=== PATIENT | female | born 1955 | race Caucasian/White ===

== ENCOUNTER 2016-07-31 19:51 | Observation (INO) | payer OTHER ==
--- NOTE | 2016-07-31 20:35 | ERPHSYRPT ---
- History of Present Illness Time Seen by Provider: 07/31/16 20:30 Source: patient, family, EMS Exam Limitations: no limitations Patient Subjective Stated Complaint: per "she was dx with alzheimers. tonight she called the police on me wanting me to leave. that i didn't leave there and she didn't want me there. that it was her house and that i did not have any part of it. she was fighting with the police when they came. we have been for almost 41 years.". pt denies any complaints at this time. Triage Nursing Assessment: alert to person, place, skin pink warm, steady gait, breathign easy unlabored Physician History: pt has no trauma; but had altered mental status today and called police on her ; although she has regained orientation now she does not know what happened and is concerned for underlying medical problems as is ; no neuro deficits at this time; discussed risk/benefit of ct and they are most comfortable to hiold off at this time; no CP or sobreath; no abd pain or dizziness; no carotid bruits; no goiter; no outward signs of infection ; no cough or fever; Timing/Duration: today Severity: severe Character of Deficits: other (altered mental status- transitory) Deficits: no difficulties Baseline/Normal Cognition: alert oriented x 3 Current Cognition: alert oriented x 3 Associated Symptoms: confusion Allergies/Adverse Reactions: UNOBTAINABLE Allergy (Unverified 07/31/16 20:04) Hx Tetanus, Diphtheria Vaccination/Date Given: (unknown) Hx Influenza Vaccination/Date Given: Yes (2015) Hx Pneumococcal Vaccination/Date Given: No - Review of Systems Constitutional: No Fever, No Chills Eyes: No Symptoms Ears, Nose, & Throat: No Symptoms Respiratory: No Cough, No Dyspnea Cardiac: No Chest Pain, No Edema, No Syncope Abdominal/Gastrointestinal: No Abdominal Pain, No Nausea, No Vomiting, No Diarrhea Genitourinary Symptoms: No Dysuria Musculoskeletal: No Back Pain, No Neck Pain Skin: No Rash Neurological: Other (transient altered mental status), No Dizziness, No Focal Weakness, No Sensory Changes Psychological: No Symptoms Endocrine: No Symptoms Hematologic/Lymphatic: No Symptoms Immunological/Allergic: No Symptoms All Other Systems: Reviewed and Negative - Past Medical History Pertinent Past Medical History: No Neurological History: Alzheimer's Disease Endocrine Medical History: Diabetes Type II Psycho-Social History: Depression - Past Surgical History Past Surgical History: Yes Other Surgical History: gallbladder; 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 - Social History Smoking Status: Current every day smoker Drug Use: marijuana Patient Lives Alone: No - Nursing Vital Signs Nursing Vital Signs: Initial Vital Signs Temperature 97.9 F Temperature Source Oral Pulse Rate 85 Respiratory Rate 18 Blood Pressure [Right Arm] 109/45 Pain Intensity 0 - Lyons Coma Scale Best Eye Response (Destini): (4) open spontaneously Best Verbal Response (Lyons): (5) oriented Best Motor Response (Lyons): (6) obeys commands Destini Total: 15 - Physical Exam General Appearance: no apparent distress, alert Eye Exam: bilateral eye: PERRL, EOMI Ears, Nose, Throat Exam: normal ENT inspection, moist mucous membranes Neck Exam: normal inspection, non-tender, supple Respiratory: normal breath sounds, lungs clear, airway intact, No respiratory distress Cardiovascular: regular rate/rhythm, No edema Gastrointestinal: soft, No tenderness, No distention Pelvic Exam: deferred Rectal Exam: deferred Back Exam: normal inspection Extremity Exam: normal inspection, No pedal edema Mental Status: alert, 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: tongue midline Coordination/Gait: normal finger to nose, normal gait Skin Exam: normal color, warm, dry, No rash SpO2: 97 Oxygen Delivery: Room Air - Course Nursing assessment & vital signs reviewed: Yes EKG Interpreted by Me: Sinus Rhythm, NORMAL AXIS, NORMAL QRS, Non-specific ST Changes Ordered Tests: Active Orders 24 hr Category Date Time Status EKG-ER Only STAT Care 07/31/16 20:35 Active IV Insertion STAT Care 07/31/16 20:35 Active CBC W DIFF Stat Lab 07/31/16 20:35 Completed CMP Stat Lab 07/31/16 20:35 Completed Lactic Acid Urgent Lab 07/31/16 20:56 Completed SED RATE [Erythrocyte Sedimentation Rate] Stat Lab 07/31/16 20:38 Completed T4 Stat Lab 07/31/16 20:35 Completed TROPONIN Stat Lab 07/31/16 20:35 Completed TSH, 3RD Generation Stat Lab 07/31/16 20:35 Completed UA Stat Lab 07/31/16 22:49 Completed Medication Summary Generic Name Dose Route Start Last Admin Trade Name Freq PRN Reason Stop Dose Admin Sodium Chloride 1,000 mls @ 100 mls/hr 07/31/16 20:45 07/31/16 20:52 Sodium Chloride 0.9% 1000 Ml IV 08/30/16 20:44 100 mls/hr .Q10H GERHARD Administration Discontinued Medications Generic Name Dose Route Start Last Admin Trade Name Larissa PRN Reason Stop Dose Admin Sodium Chloride Confirm 07/31/16 20:51 Sodium Chloride 0.9% 1000 Ml Administered 07/31/16 20:52 Dose 1,000 mls @ ud .ROUTE .K-MED ONE Lab/Rad Data: Laboratory Result Diagrams 07/31/16 20:35 07/31/16 20:35 Laboratory Results 07/31/16 07/31/16 07/31/16 Range/Units 22:49 20:56 20:38 WBC (4.0-10.5) K/mm3 RBC (4.1-5.4) M/mm3 Hgb (12.0-16.0) gm/dl Hct (35-47) % MCV (78-100) fl MCH (26-32) pg MCHC (32-36) g/dl RDW (11.5-14.0) % Plt Count (150-450) K/mm3 MPV (6-9.5) fl Gran % (36.0-66.0) % Lymphocytes % (24.0-44.0) % Monocytes % (0.0-12.0) % Eosinophils % (0.00-5.0) % Basophils % (0.0-0.4) % Basophils # (0-0.4) ESR 6 (0-20) mm/hr Sodium (136-145) mEq/L Potassium (3.5-5.1) mEq/L Chloride (98-107) mEq/L Carbon Dioxide (21-32) mEq/L Anion Gap (5-15) MEQ/L BUN (9-20) mg/dL Creatinine (0.55-1.30) mg/dl Estimated GFR ML/MIN Glucose (70-110) MG/DL Lactic Acid 2.0 (0.4-2.0) Calcium (8.5-10.1) mg/dL Total Bilirubin (0.2-1.0) mg/dL AST (15-37) U/L ALT (12-78) U/L Alkaline Phosphatase (46-116) U/L Troponin I (0.000-0.056) ng/ml Serum Total Protein (6.4-8.2) gm/dL Albumin (3.4-5.0) g/dL Thyroxine (T4) (4.7-13.3) UG/DL TSH 3rd Generation (0.358-3.740) mIU/L Ur Collection Type CLEAN CATCH Urine Color COLORLESS (YELLOW) Urine Appearance CLEAR (CLEAR) Urine pH 5.5 (5-6) Ur Specific Morgan <=1.005 (1.005-1.025) Urine Protein NEGATIVE (Negative) Urine Glucose (UA) NEGATIVE (NEGATIVE) mg/dL Urine Ketones NEGATIVE (NEGATIVE) Urine Nitrite NEGATIVE (NEGATIVE) Urine Bilirubin NEGATIVE (NEGATIVE) Urine Urobilinogen 0.2 (0-1) mg/dL Urine WBC (Auto) NEGATIVE (NEGATIVE) Urine RBC (Auto) NEGATIVE (0-5) Stan/ul Specimen Received 07/31/16 22407/31/16 07/31/16 Range/Units 20:35 20:35 WBC 16.5 H (4.0-10.5) K/mm3 RBC 4.46 (4.1-5.4) M/mm3 Hgb 13.3 (12.0-16.0) gm/dl Hct 40.2 (35-47) % MCV 90.1 (78-100) fl MCH 29.8 (26-32) pg MCHC 33.1 (32-36) g/dl RDW 13.0 (11.5-14.0) % Plt Count 332 (150-450) K/mm3 MPV 9.9 H (6-9.5) fl Gran % 74.1 H (36.0-66.0) % Lymphocytes % 18.9 L (24.0-44.0) % Monocytes % 5.1 (0.0-12.0) % Eosinophils % 1.7 (0.00-5.0) % Basophils % 0.2 (0.0-0.4) % Basophils # 0.03 (0-0.4) ESR (0-20) mm/hr Sodium 141 (136-145) mEq/L Potassium 4.4 (3.5-5.1) mEq/L Chloride 104 (98-107) mEq/L Carbon Dioxide 26.3 (21-32) mEq/L Anion Gap 14.9 (5-15) MEQ/L BUN 11 (9-20) mg/dL Creatinine 0.85 (0.55-1.30) mg/dl Estimated GFR > 60 ML/MIN Glucose 132 H (70-110) MG/DL Lactic Acid (0.4-2.0) Calcium 9.5 (8.5-10.1) mg/dL Total Bilirubin 0.2 (0.2-1.0) mg/dL AST 20 (15-37) U/L ALT 16 (12-78) U/L Alkaline Phosphatase 88 (46-116) U/L Troponin I < 0.017 (0.000-0.056) ng/ml Serum Total Protein 6.6 (6.4-8.2) gm/dL Albumin 4.0 (3.4-5.0) g/dL Thyroxine (T4) 12.6 (4.7-13.3) UG/DL TSH 3rd Generation 0.017 L (0.358-3.740) mIU/L Ur Collection Type Urine Color (YELLOW) Urine Appearance (CLEAR) Urine pH (5-6) Ur Specific Morgan (1.005-1.025) Urine Protein (Negative) Urine Glucose (UA) (NEGATIVE) mg/dL Urine Ketones (NEGATIVE) Urine Nitrite (NEGATIVE) Urine Bilirubin (NEGATIVE) Urine Urobilinogen (0-1) mg/dL Urine WBC (Auto) (NEGATIVE) Urine RBC (Auto) (0-5) Stan/ul Specimen Received - Progress Progress: improved, re-examined Progress Note: 07/31/16 23:[address] Caceres and family and pt is not safe for DC home as was later incoherent in ER and they will work on placement depending on how she does in the night. Discussed with : Lamberto Will see patient in: hospital (observation) Counseled pt/family regarding: lab results, diagnosis, need for follow-up - Departure Time of Disposition: 23:29 Departure Disposition: Observation Clinical Impression: Altered mental status, unspecified Condition: Good Critical Care Time: No
[2016-07-31] MEDS ORDERED: Sodium Chloride 0.9% 1000 ML 1,000 ML IV SCH (20:45)
[2016-07-31] MEDS ORDERED: Sodium Chloride 0.9% 1000 ML 1,000 ML ONE (20:51)
[2016-07-31 21:02] LABS: BASOPHIL % 0.2 % (0.0-0.4); Eosinophil % 1.7 % (0.00-5.0); Granulocytes % 74.1 % (36.0-66.0); Lymphocytes % 18.9 % (24.0-44.0); Mean Cell Volume 90.1 fl (78-100); Mean Corpuscular Hemoglobin 29.8 pg (26-32); Mean Platelet Volume 9.9 fl (6-9.5); Monocytes % 5.1 % (0.0-12.0); Platelet Count 332 K/mm3 (150-450); Red Blood Count 4.46 M/mm3 (4.1-5.4); White Blood Count 16.5 K/mm3 (4.0-10.5)
[2016-07-31 21:27] LABS: ALKALINE PHOSPHATASE 88 U/L (46-116); ANION GAP 14.9 MEQ/L (5-15); BILIRUBIN,TOTAL 0.2 mg/dL (0.2-1.0); BLOOD UREA NITROGEN 11 mg/dL (9-20); CHLORIDE 104 mEq/L (98-107); Carbon Dioxide 26.3 mEq/L (21-32); Glucose 132 MG/DL (70-110); Potassium 4.4 mEq/L (3.5-5.1); SGOT/AST 20 U/L (15-37); SGPT/ALT 16 U/L (12-78); SODIUM 141 mEq/L (136-145); Total Protein 6.6 gm/dL (6.4-8.2)
[2016-07-31 21:29] LABS: TROPONIN < 0.017 ng/ml (0.000-0.056)
[2016-07-31 22:53] LABS: COMPLETE URINE MICROSCOPIC? NO; Collection Type CLEAN CATCH; Ph 5.5 (5-6)
[2016-08-01] MEDS ORDERED: TYLENOL 325 MG PO PRN
[2016-08-01] MEDS ORDERED: Zofran 4 MG/2 ML VIAL IV PRN
[2016-08-01] MEDS ORDERED: MORPHINE SULFATE 2 MG INJ IV PRN
[2016-08-01] MEDS ORDERED: NovoLOG Insulin SQ PRN
[2016-08-01] MEDS ORDERED: Ativan 1 MG PO PRN
[2016-08-01 05:43] LABS: BASOPHIL % 0.4 % (0.0-0.4); Eosinophil % 3.8 % (0.00-5.0); Granulocytes % 52.5 % (36.0-66.0); Lymphocytes % 37.3 % (24.0-44.0); Mean Corpuscular Hemoglobin 30.3 pg (26-32); Mean Platelet Volume 9.9 fl (6-9.5); Platelet Count 306 K/mm3 (150-450); Red Blood Count 4.22 M/mm3 (4.1-5.4); Red Cell Distribution Width 12.9 % (11.5-14.0); White Blood Count 10.3 K/mm3 (4.0-10.5)
[2016-08-01 05:53] LABS: ANION GAP 13.1 MEQ/L (5-15); BLOOD UREA NITROGEN 10 mg/dL (9-20); CHLORIDE 105 mEq/L (98-107); Carbon Dioxide 27.9 mEq/L (21-32); Glucose 129 MG/DL (70-110); Potassium 4.4 mEq/L (3.5-5.1); SODIUM 142 mEq/L (136-145)
[2016-08-01 11:18] VITALS: BP 172/75; PULSE 78; O2SAT 95
--- NOTE | 2016-08-02 08:49 | SSS ---
DISCHARGE DIAGNOSIS: DEMENTIA. HISTORY: The patient is a 61 year-old white female patient who had gotten into an argument with her spouse of 41 years. The patient is known to have issues with mild dementia in the past. I believe she has been seen by neurology in the past. She is not currently on any dementia medications. The patient does have a history of diabetes mellitus type 2 as well. Apparently after an argument at home the patient was brought to the hospital and it was felt that she needed to stay due to her disorientation to place and time. The patient was admitted and given IV fluids and monitored overnight. She continued to show no evidence of infection or other problems. She did have altered mental status when she arrived but this has cleared up. On discussion she recognized me although she could not name the hospital and she could not name the month, year or President. She could tell me that it was Monday however which was correct. PAST MEDICAL HISTORY: Otherwise significant for having cholecystectomy. She had a previous bone tumor removed. HOSPITAL COURSE: Her evaluation physically appeared to be normal for her. Laboratory studies were also likewise were essentially all negative. The patient's thyroid studies were also done and were normal was well. The patient was felt to be ready for discharge back home again to the care of her spouse if he is willing to accept her in the home. We will try to arrange for her to go back and see her neurologist. If that is not possible we will get a tele-neurology consult prior to her discharge home.
== END 2016-08-01 11:08 | disposition home or self-care (01) ==
LOC: ED 19:51 → MED SURG 23:53
PROVIDERS: ADMIT Family Medicine; ATTEND Family Medicine
DX: G30.9 Alzheimer's disease, unspecified (principal); F02.80 Dementia in other diseases classified elsewhere, unspecified severity, without behavioral disturbance, psychotic disturbance, mood disturbance, and anxiety; E11.9 Type 2 diabetes mellitus without complications; Z79.4 Long term (current) use of insulin; Z79.899 Other long term (current) drug therapy
CPT/HCPCS: 36000; 36415; 80048; 80053; 81002; 82962; 83605; 84436; 84443; 84484; 85025; 85652; 93005; 93268; 94760; 96360; 96361; 99284; 99285; G0378

== ENCOUNTER 2017-03-31 14:11 | Emergency (ER) | payer OTHER ==
[2017-03-31 14:53] LABS: BASOPHIL % 0.5 % (0.0-0.4); Eosinophil % 2.4 % (0.00-5.0); Granulocytes % 70.4 % (36.0-66.0); Lymphocytes % 21.1 % (24.0-44.0); Mean Cell Volume 89.1 fl (78-100); Mean Platelet Volume 8.9 fl (6-9.5); Monocytes % 5.6 % (0.0-12.0); Platelet Count 392 K/mm3 (150-450); Red Blood Count 3.94 M/mm3 (4.1-5.4); Red Cell Distribution Width 13.2 % (11.5-14.0); White Blood Count 10.2 K/mm3 (4.0-10.5)
[2017-03-31 14:54] LABS: Mean Corpuscular Hemoglobin 29.1 pg (26-32)
--- NOTE | 2017-03-31 15:13 | ERPHSYRPT ---
- History of Present Illness Time Seen by Provider: 03/31/17 14:18 Source: patient, family ( who is caregiver) Patient Subjective Stated Complaint: states patient has been more confused than normal for one week. hx alzheimers Triage Nursing Assessment: patient ambulated to room per self. patient oriented only to name and . speech clear, cooperative. Physician History: CC: confusion Hx; 62 y/o patient of Dr Abad. She has hx of dementia for a fair amount of time. cares for her at home. She has been more agitated, not lucid during the past week. No injury. She was upset and told she was going to hurt him with scissors. He got them away from her when she went to the . She has been thinking her parents alive even though they are . She thinks her son is her brother and her is not her . Dr Abad called out haldol this AM and she was given one pill this AM. Pt denies headache, fever , pain. She feels sad and does not want any more. Allergies/Adverse Reactions: No Known Drug Allergies Allergy (Unverified 03/31/17 14:28) Hx Tetanus, Diphtheria Vaccination/Date Given: Yes (2016) Hx Influenza Vaccination/Date Given: Yes (2015) Hx Pneumococcal Vaccination/Date Given: Yes - Review of Systems Constitutional: No Fever, No Chills, No Malaise Eyes: No Symptoms Respiratory: No Dyspnea Cardiac: No Chest Pain Abdominal/Gastrointestinal: No Abdominal Pain, No Nausea, No Vomiting, No Diarrhea Musculoskeletal: No Back Pain, No Neck Pain Skin: No Rash Neurological: No Focal Weakness, No Headache All Other Systems: Reviewed and Negative - Past Medical History Pertinent Past Medical History: Yes Neurological History: Alzheimer's Disease Endocrine Medical History: Diabetes Type II Psycho-Social History: Depression - Past Surgical History Past Surgical History: Yes Gastrointestinal: Cholecystectomy Other Surgical History: gallbladder; 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 - Social History Smoking Status: Current every day smoker How long have you smoked: years Exposure to second hand smoke: No Drug Use: none Patient Lives Alone: No (lives at home with ) - Nursing Vital Signs Nursing Vital Signs: Initial Vital Signs Temperature 98.5 F 03/31/17 14:17 Pulse Rate 73 03/31/17 14:17 Respiratory Rate 16 10/20/17 14:17 Blood Pressure 177/65 10/20/17 14:17 O2 Sat by Pulse Oximetry 100 03/31/17 14:17 Pain Scale Pain Intensity 0 - Physical Exam General Appearance: alert Eye Exam: PERRL/EOMI Ears, Nose, Throat Exam: normal ENT inspection, moist mucous membranes Neck Exam: normal inspection, supple Respiratory Exam: normal breath sounds Cardiovascular Exam: regular rate/rhythm Gastrointestinal/Abdomen Exam: soft, No tenderness, No distention Back Exam: normal inspection Extremity Exam: normal inspection, normal range of motion Neurologic Exam: alert, cooperative, disoriented, depressed mood/affect, other ( MMSE 4/30- severe impairment) Skin Exam: warm, dry, No rash SpO2 Interpretation: normal SpO2: 100 Oxygen Delivery: Room Air - Course Nursing assessment & vital signs reviewed: Yes - CT Exams head CT Interpretation: Negative, Tele-radiologist Report Ordered Tests: Active Orders 24 hr Category Date Time Status Clean Catch Urine Specimen STAT Care 03/31/17 14:29 Active IV Insertion STAT Care 03/31/17 14:29 Active Regular Diet Diet 03/31/17 Dinner Active HEAD WITHOUT CONTRAST [CT] Stat Exams 03/31/17 15:15 Completed ACETAMINOPHEN Stat Lab 03/31/17 15:04 Completed CBC W DIFF Stat Lab 03/31/17 14:45 Completed CMP Stat Lab 03/31/17 14:45 Completed ETHYL ALCOHOL Stat Lab 03/31/17 15:04 Completed RPR Stat Lab 03/31/17 15:15 Ordered TSH [TSH, 3RD Generation] Stat Lab 03/31/17 15:04 Completed UA W/RFX UR CULTURE Stat Lab 03/31/17 14:45 Completed Urine Triage Profile Stat Lab 03/31/17 15:14 Completed Lab/Rad Data: Laboratory Result Diagrams 03/31/17 14:45 03/31/17 14:45 Laboratory Results 03/31/17 03/31/17 03/31/17 Range/Units 15:14 15:04 14:45 WBC (4.0-10.5) K/mm3 RBC (4.1-5.4) M/mm3 Hgb (12.0-16.0) gm/dl Hct (35-47) % MCV (78-100) fl MCH (26-32) pg MCHC (32-36) g/dl RDW (11.5-14.0) % Plt Count (150-450) K/mm3 MPV (6-9.5) fl Gran % (36.0-66.0) % Lymphocytes % (24.0-44.0) % Monocytes % (0.0-12.0) % Eosinophils % (0.00-5.0) % Basophils % (0.0-0.4) % Basophils # (0-0.4) Sodium (136-145) mEq/L Potassium (3.5-5.1) mEq/L Chloride (98-107) mEq/L Carbon Dioxide (21-32) mEq/L Anion Gap (5-15) MEQ/L BUN (9-20) mg/dL Creatinine (0.55-1.30) mg/dl Estimated GFR ML/MIN Glucose (70-110) MG/DL Calcium (8.5-10.1) mg/dL Total Bilirubin (0.2-1.0) mg/dL AST (15-37) U/L ALT (12-78) U/L Alkaline Phosphatase (46-116) U/L Serum Total Protein (6.4-8.2) gm/dL Albumin (3.4-5.0) g/dL TSH 3rd Generation 0.668 (0.358-3.740) mIU/L Ur Collection Type CCMS Urine Color YELLOW (YELLOW) Urine Appearance SLIGHTLY CLOUDY (CLEAR) Urine pH 5.0 (5-6) Ur Specific Merrill 1.005 (1.005-1.025) Urine Protein NEGATIVE (Negative) Urine Ketones NEGATIVE (NEGATIVE) Urine Blood NEGATIVE (0-5) Stan/ul Urine Nitrite NEGATIVE (NEGATIVE) Urine Bilirubin NEGATIVE (NEGATIVE) Urine Urobilinogen NORMAL (0-1) mg/dL Ur Leukocyte Esterase NEGATIVE (NEGATIVE) Urine Culture Reflexed NO (NO) Urine Glucose NEGATIVE (NEGATIVE) mg/dL Urine Opiates Level NEG. (NEGATIVE) Ur Methadone NEG. (NEGATIVE) Acetaminophen < 2.0 L (10-30) ug/ml Urine Barbiturates NEG. (NEGATIVE) Ur Phencyclidine (PCP) NEG. (NEGATIVE) Urine Amphetamine NEG. (NEGATIVE) U Benzodiazepine Level NEG. (NEGATIVE) Urine Cocaine NEG. (NEGATIVE) Urine Marijuana (THC) NEG. (NEGATIVE) Ethyl Alcohol 0.02 H (0.00-0.01) % Specimen Received 1510 03/31/17 03/31/17 03/31/17 Range/Units 14:45 14:45 WBC 10.2 (4.0-10.5) K/mm3 RBC 3.94 L (4.1-5.4) M/mm3 Hgb 11.5 L (12.0-16.0) gm/dl Hct 35.1 (35-47) % MCV 89.1 (78-100) fl MCH 29.1 (26-32) pg MCHC 32.8 (32-36) g/dl RDW 13.2 (11.5-14.0) % Plt Count 392 (150-450) K/mm3 MPV 8.9 (6-9.5) fl Gran % 70.4 H (36.0-66.0) % Lymphocytes % 21.1 L (24.0-44.0) % Monocytes % 5.6 (0.0-12.0) % Eosinophils % 2.4 (0.00-5.0) % Basophils % 0.5 (0.0-0.4) % Basophils # 0.05 (0-0.4) Sodium 137 (136-145) mEq/L Potassium 4.3 (3.5-5.1) mEq/L Chloride 99 (98-107) mEq/L Carbon Dioxide 28.7 (21-32) mEq/L Anion Gap 13.3 (5-15) MEQ/L BUN 18 (9-20) mg/dL Creatinine 0.91 (0.55-1.30) mg/dl Estimated GFR > 60 ML/MIN Glucose 112 H (70-110) MG/DL Calcium 9.3 (8.5-10.1) mg/dL Total Bilirubin 0.40 (0.2-1.0) mg/dL AST 23 (15-37) U/L ALT 31 (12-78) U/L Alkaline Phosphatase 79 (46-116) U/L Serum Total Protein 7.6 (6.4-8.2) gm/dL Albumin 4.0 (3.4-5.0) g/dL TSH 3rd Generation (0.358-3.740) mIU/L Ur Collection Type Urine Color (YELLOW) Urine Appearance (CLEAR) Urine pH (5-6) Ur Specific Merrill (1.005-1.025) Urine Protein (Negative) Urine Ketones (NEGATIVE) Urine Blood (0-5) Stan/ul Urine Nitrite (NEGATIVE) Urine Bilirubin (NEGATIVE) Urine Urobilinogen (0-1) mg/dL Ur Leukocyte Esterase (NEGATIVE) Urine Culture Reflexed (NO) Urine Glucose (NEGATIVE) mg/dL Urine Opiates Level (NEGATIVE) Ur Methadone (NEGATIVE) Acetaminophen (10-30) ug/ml Urine Barbiturates (NEGATIVE) Ur Phencyclidine (PCP) (NEGATIVE) Urine Amphetamine (NEGATIVE) U Benzodiazepine Level (NEGATIVE) Urine Cocaine (NEGATIVE) Urine Marijuana (THC) (NEGATIVE) Ethyl Alcohol (0.00-0.01) % Specimen Received - Progress Progress Note: 03/31/17 15:13 She seems some depressed. She has severe dementia. She has decline. is at wits end. She likely needs geriatric psychiatry admission. He prefers [facility] if available. 03/31/17 16:59 Records sent to [facility] for review. She ate meal tray. 03/31/17 17:47 Pt accepted in transfer to [facility] per Dr Vyas. Counseled pt/family regarding: diagnosis, need for follow-up - Departure Time of Disposition: 17:47 Departure Disposition: Transfer ([facility]) Clinical Impression: Alzheimer's dementia with behavioral disturbance, geriatric depression Condition: Stable Critical Care Time: No Referrals: MAEVE ABAD [Primary Care Provider] -
[2017-03-31 15:20] LABS: Bilirubin NEGATIVE (NEGATIVE); Blood NEGATIVE Ery/ul (0-5); COMPLETE URINE MICROSCOPIC? NO; Collection Type CCMS; Glucose NEGATIVE (NEGATIVE); Leukocyte Esterase NEGATIVE (NEGATIVE)
[2017-03-31 15:22] LABS: ACETAMINOPHEN < 2.0 ug/ml (10-30)
[2017-03-31 15:22] LABS: ADD URINE CULTURE? NO (NO)
[2017-03-31 15:26] LABS: ETHYL ALCOHOL 0.02 % (0.00-0.01)
[2017-03-31 15:27] LABS: ALKALINE PHOSPHATASE 79 U/L (46-116); ANION GAP 13.3 MEQ/L (5-15); BLOOD UREA NITROGEN 18 mg/dL (9-20); CHLORIDE 99 mEq/L (98-107); Carbon Dioxide 28.7 mEq/L (21-32); Glucose 112 MG/DL (70-110); Potassium 4.3 mEq/L (3.5-5.1); SGOT/AST 23 U/L (15-37); SGPT/ALT 31 U/L (12-78); SODIUM 137 mEq/L (136-145); Total Protein 7.6 gm/dL (6.4-8.2)
--- NOTE | 2017-03-31 15:39 | XRAY ---
Indication: Confusion. Multiple contiguous axial images obtained through the head without contrast. Comparison: None Age-appropriate global atrophy and minimal periventricular degenerative micro-ischemia bilaterally. No acute intracranial hemorrhage, abnormal extra-axial fluid collection, or mass effect. Fourth ventricle is midline without hydrocephalus. Bony calvarium intact. Visualized paranasal sinuses and mastoid air cells are clear. Impression: Nonacute senile brain. CT DI 70.62
[2017-03-31] MEDS ORDERED: HALDOL 1 MG PO ONE (18:08)
[2017-03-31] MEDS ORDERED: Ativan 1 MG PO ONE (18:13)
[2017-03-31 18:29] VITALS: BP 159/72; PULSE 68; O2SAT 98
== END 2017-03-31 19:25 | disposition short-term general hospital (02) ==
LOC: ED 14:11
DX: G30.9 Alzheimer's disease, unspecified (principal); F02.81 Dementia in other diseases classified elsewhere, unspecified severity, with behavioral disturbance; R41.0 Disorientation, unspecified; E11.9 Type 2 diabetes mellitus without complications
CPT/HCPCS: 36000; 36415; 70450; 80053; 80307; 81002; 84443; 85025; 86592; 99285; G0481; A9270-GY

== ENCOUNTER 2017-09-14 15:07 | Observation (INO) | payer MEDICAID, MEDICARE, OTHER ==
[2017-09-14] MEDS ORDERED: Sodium Chloride 0.9% 1000 ML 1,000 ML IV SCH ×2 (15:15→19:59)
[2017-09-14 15:20] LABS: A-aADO2 -106; ABG HEMOGLOBIN 12.9; ABG POTASSIUM 3.6 (3.5-5.1); ABG SITE RIGHT BRACHIAL; ARTERIAL BLD GAS O2 SATURATION 99.7 % (95-100); ARTERIAL BLOOD GAS BASE EXCESS 6.9 (-2.0-2.0); ARTERIAL BLOOD GAS FIO2 44 %; ARTERIAL BLOOD GAS PCO2 38 mmHg (35-45); ARTERIAL BLOOD GAS PO2 372 mmHg (75-100); ARTERIAL BLOOD GAS pH 7.51 (7.35-7.45); CARBOXYHEMOGLOBIN 1.2 % THgb (0.0-6.9); HCO3- 30.3 (22-28); HGB O2 SAT 97.5 g/dF (94-100); Lactic Acid 2.3 (0.4-2.0)
[2017-09-14 15:54] LABS: BASOPHIL % 0.2 % (0.0-0.4); Basophil (Absolute #) 0.02 (0-0.4); Eosinophil % 0.4 % (0.00-5.0); Eosinophil (Absolute #) 0.04 (0-0.5); Granulocyte Absolute (ANC) 7.76 (1.4-6.9); Granulocytes % 67.9 % (36.0-66.0); Hemoglobin 13.1 gm/dl (12.0-16.0); Lymphocyte (Absolute #) 2.91 (1.0-4.6); Lymphocytes % 25.5 % (24.0-44.0); Mean Cell Volume 90.9 fl (78-100); Mean Corpuscular Hemoglobin 29.8 pg (26-32); Mean Corpuscular Hgb Concent. 32.8 g/dl (32-36); Mean Platelet Volume 10.2 fl (6-9.5); Monocyte (Absolute #) 0.68 (0.0-1.3); Platelet Count 247 K/mm3 (150-450); Red Cell Distribution Width 16.4 % (11.5-14.0); White Blood Count 11.4 K/mm3 (4.0-10.5)
[2017-09-14 16:17] LABS: INR 1.24 (0.8-3.0)
[2017-09-14 16:19] LABS: PTT 30.4 SECONDS (25.3-37.0)
[2017-09-14 16:21] LABS: ALBUMIN 3.6 g/dL (3.5-5.0); ALKALINE PHOSPHATASE 62 U/L (38-126); ANION GAP 13.5 MEQ/L (5-15); BLOOD UREA NITROGEN 38 mg/dL (7-17); CHLORIDE 108 mmol/L (98-107); Carbon Dioxide 30 mmol/L (22-30); Creatinine 1 1.02 mg/dL (0.52-1.04); Glucose 146 mg/dL (74-106); Potassium 3.6 mmol/L (3.5-5.1); SGOT/AST 36 U/L (14-36); SGPT/ALT 33 U/L (0-35); SODIUM 148 mmol/L (137-145); Total Protein 6.3 g/dL (6.3-8.2)
--- NOTE | 2017-09-14 16:36 | XRAY ---
Indication: Acute mental status change. Facial bruising. Multiple contiguous axial images obtained through the cervical spine. Sagittal and coronal reformatted images obtained. Comparison: None Axial images negative for acute fracture, suspicious bony lesions, or spinal canal stenosis. Mild C4-C6 degenerative endplate spurring. Mild/moderate multilevel bilateral degenerative facet hypertrophy. Sagittal and coronal reformatted images demonstrates straightening of the cervical lordosis, positional versus paraspinal spasm. Minimal 2 mm C4 anterolisthesis on C5. C6-C7 degenerative disc space narrowing. No acute compression fracture or jumped facet. Normal-appearing craniocervical junction. Visualized noncontrasted soft tissues demonstrates minimal bilateral carotid calcifications and dense bilateral thyroid calcifications. Lung apices clear. CT head and CT facial bones reported separately. Impression: 1. Cervical lordotic screening, positional versus paraspinal spasm. 2. Multilevel degenerative changes including minimal grade 1 C4 anterolisthesis. CTDI 39.08
--- NOTE | 2017-09-14 16:36 | XRAY ---
Indication: Acute mental status change. Facial bruising. Multiple contiguous axial images obtained through the head without contrast. Comparison: March 31, 2017. Several images are degraded by motion artifact. Grossly stable age appropriate global atrophy and mild periventricular degenerative micro-ischemia bilaterally. No acute intracranial hemorrhage, abnormal extra-axial fluid collection, or mass effect. Fourth ventricle is midline without hydrocephalus. Bony calvarium intact. Visualized paranasal sinuses and mastoid air cells are clear. Impression: Limited exam due to motion artifact. Grossly stable nonacute senile brain. CTDI 61.38
--- NOTE | 2017-09-14 16:38 | XRAY ---
Indication: Acute mental status change. Facial bruising. Multiple contiguous axial images obtained through the facial bones. Sagittal and coronal reformatted images obtained. Comparison: None Inferior images are slightly degraded by motion artifact. No acute fracture, suspicious bony lesions, or radiopaque foreign body. Orbits including roof, jennings, and floor intact. Paranasal sinuses and nasal passages are clear. Minimal nasal septal deviation. Visualized noncontrasted soft tissues unremarkable. CT head and CT cervical spine reported separately. Impression: 1. Minimal motion artifact. 2. Remaining CT facial bones exam negative. CTDI 59.47
[2017-09-14 16:41] LABS: TROPONIN < 0.012 ng/mL (0.000-0.034)
[2017-09-14] MEDS ORDERED: Sodium Chloride 0.9% 1000 ML 1,000 ML ONE (17:02)
--- NOTE | 2017-09-14 17:58 | ERPHSYRPT ---
- History of Present Illness Time Seen by Provider: 09/14/17 15:12 Source: family (), EMS Patient Subjective Stated Complaint: respiratory distress Triage Nursing Assessment: pt to er per ems, respiratory distress during routine S tranfer from [facility] to [facility] Physician History: CC: altered breathing hx: 62 y/o patient of Dr Alston from [facility]. She has been inpatient at [facility] geriatric unit for several weeks. She has hx of alzheimers disease. She has agitation. Paces a lot. Was to return to [place] today. [facility] picked her up at [facility]. She ativan earlier in day. EMT states patient did not want to get onto the EMS cot, was given IM shot zyprexa and then calmed and was loaded on to ambulance. While en route she was sleeping and then the patient had decreased breathing, low pulse ox, and tachycardia. The EMT diverted to [facility] ER. EMT states no fall or injury but had some bruises. ILL: Alzheimer dementia, depression, Type 2 diabetes, HTN, hyperlipidemia, hypothyroidism, GERD with esophagitis ALL: None Timing/Duration: today Severity: severe Allergies/Adverse Reactions: No Known Drug Allergies Allergy (Verified 09/14/17 15:15) Home Medications: Alprazolam [Xanax 0.5 mg] 0.5 mg PO TID 03/31/17 [History] Aripiprazole [Abilify] 2 mg PO DAILY 03/31/17 [History] Donepezil HCl 10 mg [Aricept 10 MG] 10 mg PO HS 03/31/17 [History] Fluoxetine HCl 40 mg PO DAILY 03/31/17 [History] Haloperidol 1 mg [Haldol 1 mg] 2 mg PO BID 03/31/17 [History] Hydrocodone/Acetaminophen [Hydrocodon-Acetaminophn 10-325] 1 each PO Q6HPRN PRN 03/31/17 [History] Levothyroxine Sodium [Synthroid] 125 mcg PO DAILY 03/31/17 [History] Metformin HCl [Glucophage] 1,000 mg PO BID 03/31/17 [History] Omeprazole 40 mg PO DAILY 03/31/17 [History] Quetiapine Fumarate 25 mg [Seroquel 25 MG] 25 mg PO HS 03/31/17 [History] Simvastatin 20Mg [Zocor 20Mg] 20 mg PO QPM 03/31/17 [History] Hx Tetanus, Diphtheria Vaccination/Date Given: No (unkown) Hx Influenza Vaccination/Date Given: No (unkown) Hx Pneumococcal Vaccination/Date Given: No (unkown) Immunizations Up to Date: No (unkown) - Review of Systems Constitutional: No Fever, No Chills Respiratory: Cyanosis (O2 applied per EMS), Dyspnea Abdominal/Gastrointestinal: No Vomiting Musculoskeletal: No Injury All Other Systems: Unable due to condition, Unable due to dementia - Past Medical History Pertinent Past Medical History: Yes Neurological History: Alzheimer's Disease Endocrine Medical History: Diabetes Type II Psycho-Social History: Depression - Past Surgical History Past Surgical History: Yes Gastrointestinal: Cholecystectomy Other Surgical History: gallbladder; 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 - Social History Smoking Status: Unknown if ever smoked How long have you smoked: years Exposure to second hand smoke: No Drug Use: none Patient Lives Alone: No (lives at home with ) - Nursing Vital Signs Nursing Vital Signs: Initial Vital Signs Pulse Rate 74 09/14/17 15:18 Respiratory Rate 24 09/14/17 15:18 Blood Pressure 132/90 09/14/17 15:18 O2 Sat by Pulse Oximetry 79 L 09/14/17 15:18 Pain Scale Pain Intensity 0 - Physical Exam General Appearance: other (alert, agitated, combative) Eye Exam: other (perrl) Ears, Nose, Throat Exam: moist mucous membranes Neck Exam: normal inspection Respiratory Exam: lungs clear, diminished breath sounds Cardiovascular Exam: regular rate/rhythm, bradycardia Gastrointestinal/Abdomen Exam: soft, No tenderness, No distention Neurologic Exam: alert (moves all extremitieis) Skin Exam: warm, dry, ecchymosis (scattered bruises including elbows and right eyeborw with some hematoma, left upper arm, left shoulder blade, right shoulder blade. Abrasions right elbow and left elbow.) SpO2 Interpretation: hypoxic, O2 applied SpO2: 89 Oxygen Delivery: Non-rebreather - Course EKG Interpreted by Me: RATE (47), Sinus Barber, NORMAL AXIS, NORMAL ST-T (QTc 368 ) Ordered Tests: Active Orders 24 hr Category Date Time Status Mule Packer STAT Care 09/14/17 15:13 Active Cath for Specimen-Straight STAT Care 09/14/17 15:13 Active EKG-ER Only STAT Care 09/14/17 15:12 Active IV Insertion STAT Care 09/14/17 15:12 Active Oxygen-ED Only NON-REBREATHER 100% Care 09/14/17 15:12 Active Pulse Oximetry (ED) STAT Care 09/14/17 15:12 Active Rectal Temperature STAT Care 09/14/17 15:12 Active CERVICAL SPINE WO CONTRAST [CT] Stat Exams 09/14/17 15:25 Completed CHEST 1 VIEW (PORTABLE) Stat Exams 09/14/17 15:13 Taken FACIAL BONES WO CONTRAST [CT] Stat Exams 09/14/17 15:25 Completed HEAD WITHOUT CONTRAST [CT] Stat Exams 09/14/17 15:18 Completed ARTERIAL BLOOD GASES Stat Lab 09/14/17 15:12 Completed CBC W DIFF Stat Lab 09/14/17 15:50 Completed CK-Creatinine Phosphokinase Stat Lab 09/14/17 17:46 Completed CMP Routine Lab 09/14/17 15:50 Completed Glucose,Critical Care Urgent Lab 09/14/17 15:17 Completed Lactic Acid Stat Lab 09/14/17 15:12 Completed Lactic Acid Stat Lab 09/14/17 15:33 Ordered MAGNESIUM Routine Lab 09/14/17 15:50 Completed PROTIME WITH INR Stat Lab 09/14/17 15:50 Completed PTT Stat Lab 09/14/17 15:50 Completed TROPONIN Q3H Lab 09/14/17 15:50 Completed TROPONIN Q3H Lab 09/14/17 18:15 Ordered TROPONIN Q3H Lab 09/14/17 21:15 Ordered TROPONIN Q3H Lab 09/15/17 00:15 Ordered TROPONIN Q3H Lab 09/15/17 03:15 Ordered UA W/ MICROSCOPIC Stat Lab 09/14/17 17:50 Completed Medication Summary Generic Name Dose Route Start Last Admin Trade Name Freq PRN Reason Stop Dose Admin Sodium Chloride 1,000 mls @ 50 mls/hr 09/14/17 15:15 09/14/17 17:02 Sodium Chloride 0.9% 1000 Ml IV 10/14/17 15:14 50 mls/hr .Q20H GERHARD Administration Lab/Rad Data: Laboratory Result Diagrams 09/14/17 15:50 09/14/17 15:50 Laboratory Results 09/14/17 09/14/1718 Range/Units 17:50 17:46 15:50 WBC (4.0-10.5) K/mm3 RBC (4.1-5.4) M/mm3 Hgb (12.0-16.0) gm/dl Hct (35-47) % MCV (78-100) fl MCH (26-32) pg MCHC (32-36) g/dl RDW (11.5-14.0) % Plt Count (150-450) K/mm3 MPV (6-9.5) fl Gran % (36.0-66.0) % Eos # (Auto) (0-0.5) Absolute Lymphs (auto) (1.0-4.6) Absolute Monos (auto) (0.0-1.3) Lymphocytes % (24.0-44.0) % Monocytes % (0.0-12.0) % Eosinophils % (0.00-5.0) % Basophils % (0.0-0.4) % Absolute Granulocytes (1.4-6.9) Basophils # (0-0.4) PT (9.95-12.35) SECONDS INR (0.8-3.0) APTT (25.3-37.0) SECONDS Puncture Site pCO2 (35-45) mmHg pO2 (75-100) mmHg Base Excess (-2.0-2.0) O2 Saturation (94-100) g/dF ABG pH (7.35-7.45) ABG HCO3 (22-28) ABG O2 Sat (Measured) (95-100) % Sandro Test A-a Gradient a/A Ratio Hemoglobin Carboxyhemoglobin (0.0-6.9) % THgb Methemoglobin (1.4-1.5) % Potassium 3.6 (3.5-5.1) Glucose 146 H (70-110) Temperature C POC O2 Flow Rate % Sodium 148 H (137-145) mmol/L Chloride 108 H (98-107) mmol/L Carbon Dioxide 30 (22-30) mmol/L Anion Gap 13.5 (5-15) MEQ/L BUN 38 H (7-17) mg/dL Creatinine 1.02 (0.52-1.04) mg/dL Estimated GFR 58.0 ML/MIN Lactic Acid (0.4-2.0) Calcium 9.0 (8.4-10.2) mg/dL Magnesium 1.8 (1.6-2.3) mg/dL Total Bilirubin 0.50 (0.2-1.3) mg/dL AST 36 (14-36) U/L ALT 33 (0-35) U/L Alkaline Phosphatase 62 (38-126) U/L Creatine Kinase 146 H (30-135) U/L Troponin I < 0.012 (0.000-0.034) ng/mL Serum Total Protein 6.3 (6.3-8.2) g/dL Albumin 3.6 (3.5-5.0) g/dL Ur Collection Type CATH Urine Color YELLOW (YELLOW) Urine Appearance CLEAR (CLEAR) Urine pH 6.5 (5-6) Ur Specific Benton 1.015 (1.005-1.025) Urine Protein NEGATIVE (Negative) Urine Ketones NEGATIVE (NEGATIVE) Urine Blood NEGATIVE (0-5) Stan/ul Urine Nitrite NEGATIVE (NEGATIVE) Urine Bilirubin NEGATIVE (NEGATIVE) Urine Urobilinogen 1 (0-1) mg/dL Ur Leukocyte Esterase 1+ (NEGATIVE) Urine Microscopic WBC 0-2 (0-5) /HPF Ur Epithelial Cells RARE (FEW) /HPF Urine Bacteria RARE (NEGATIVE) /HPF Urine Culture Reflexed NO (NO) Urine Glucose 250 (NEGATIVE) mg/dL Valproic Acid (50-100) ug/mL Specimen Received 09/14/17 1750 09/14/17 09/14/17 09/14/17 Range/Units 15:50 15:50 15:50 WBC 11.4 H (4.0-10.5) K/mm3 RBC 4.40 (4.1-5.4) M/mm3 Hgb 13.1 (12.0-16.0) gm/dl Hct 40.0 (35-47) % MCV 90.9 (78-100) fl MCH 29.8 (26-32) pg MCHC 32.8 (32-36) g/dl RDW 16.4 H (11.5-14.0) % Plt Count 247 (150-450) K/mm3 MPV 10.2 H (6-9.5) fl Gran % 67.9 H (36.0-66.0) % Eos # (Auto) 0.04 (0-0.5) Absolute Lymphs (auto) 2.91 (1.0-4.6) Absolute Monos (auto) 0.68 (0.0-1.3) Lymphocytes % 25.5 (24.0-44.0) % Monocytes % 6.0 (0.0-12.0) % Eosinophils % 0.4 (0.00-5.0) % Basophils % 0.2 (0.0-0.4) % Absolute Granulocytes 7.76 H (1.4-6.9) Basophils # 0.02 (0-0.4) PT 13.8 H (9.95-12.35) SECONDS INR 1.24 (0.8-3.0) APTT 30.4 (25.3-37.0) SECONDS Puncture Site pCO2 (35-45) mmHg pO2 (75-100) mmHg Base Excess (-2.0-2.0) O2 Saturation (94-100) g/dF ABG pH (7.35-7.45) ABG HCO3 (22-28) ABG O2 Sat (Measured) (95-100) % Sandro Test A-a Gradient a/A Ratio Hemoglobin Carboxyhemoglobin (0.0-6.9) % THgb Methemoglobin (1.4-1.5) % Potassium (3.5-5.1) Glucose (70-110) Temperature C POC O2 Flow Rate % Sodium (137-145) mmol/L Chloride (98-107) mmol/L Carbon Dioxide (22-30) mmol/L Anion Gap (5-15) MEQ/L BUN (7-17) mg/dL Creatinine (0.52-1.04) mg/dL Estimated GFR ML/MIN Lactic Acid (0.4-2.0) Calcium (8.4-10.2) mg/dL Magnesium (1.6-2.3) mg/dL Total Bilirubin (0.2-1.3) mg/dL AST (14-36) U/L ALT (0-35) U/L Alkaline Phosphatase (38-126) U/L Creatine Kinase (30-135) U/L Troponin I (0.000-0.034) ng/mL Serum Total Protein (6.3-8.2) g/dL Albumin (3.5-5.0) g/dL Ur Collection Type Urine Color (YELLOW) Urine Appearance (CLEAR) Urine pH (5-6) Ur Specific Benton (1.005-1.025) Urine Protein (Negative) Urine Ketones (NEGATIVE) Urine Blood (0-5) Stan/ul Urine Nitrite (NEGATIVE) Urine Bilirubin (NEGATIVE) Urine Urobilinogen (0-1) mg/dL Ur Leukocyte Esterase (NEGATIVE) Urine Microscopic WBC (0-5) /HPF Ur Epithelial Cells (FEW) /HPF Urine Bacteria (NEGATIVE) /HPF Urine Culture Reflexed (NO) Urine Glucose (NEGATIVE) mg/dL Valproic Acid 45.0 L (50-100) ug/mL Specimen Received 09/14/17 09/14/17 Range/Units 15:17 15:12 WBC (4.0-10.5) K/mm3 RBC (4.1-5.4) M/mm3 Hgb (12.0-16.0) gm/dl Hct (35-47) % MCV (78-100) fl MCH (26-32) pg MCHC (32-36) g/dl RDW (11.5-14.0) % Plt Count (150-450) K/mm3 MPV (6-9.5) fl Gran % (36.0-66.0) % Eos # (Auto) (0-0.5) Absolute Lymphs (auto) (1.0-4.6) Absolute Monos (auto) (0.0-1.3) Lymphocytes % (24.0-44.0) % Monocytes % (0.0-12.0) % Eosinophils % (0.00-5.0) % Basophils % (0.0-0.4) % Absolute Granulocytes (1.4-6.9) Basophils # (0-0.4) PT (9.95-12.35) SECONDS INR (0.8-3.0) APTT (25.3-37.0) SECONDS Puncture Site RIGHT BRACHIAL pCO2 38 (35-45) mmHg pO2 372 H* (75-100) mmHg Base Excess 6.9 H (-2.0-2.0) O2 Saturation 97.5 (94-100) g/dF ABG pH 7.51 H (7.35-7.45) ABG HCO3 30.3 H* (22-28) ABG O2 Sat (Measured) 99.7 (95-100) % Sandro Test NOT APPLICABLE A-a Gradient -106 a/A Ratio 1.40 Hemoglobin 12.9 Carboxyhemoglobin 1.2 (0.0-6.9) % THgb Methemoglobin 1.0 L (1.4-1.5) % Potassium 3.6 (3.5-5.1) Glucose 153 H (70-110) Temperature 37.0 C POC O2 Flow Rate 44 % Sodium (137-145) mmol/L Chloride (98-107) mmol/L Carbon Dioxide (22-30) mmol/L Anion Gap (5-15) MEQ/L BUN (7-17) mg/dL Creatinine (0.52-1.04) mg/dL Estimated GFR ML/MIN Lactic Acid 2.3 H (0.4-2.0) Calcium (8.4-10.2) mg/dL Magnesium (1.6-2.3) mg/dL Total Bilirubin (0.2-1.3) mg/dL AST (14-36) U/L ALT (0-35) U/L Alkaline Phosphatase (38-126) U/L Creatine Kinase (30-135) U/L Troponin I (0.000-0.034) ng/mL Serum Total Protein (6.3-8.2) g/dL Albumin (3.5-5.0) g/dL Ur Collection Type Urine Color (YELLOW) Urine Appearance (CLEAR) Urine pH (5-6) Ur Specific Benton (1.005-1.025) Urine Protein (Negative) Urine Ketones (NEGATIVE) Urine Blood (0-5) Stan/ul Urine Nitrite (NEGATIVE) Urine Bilirubin (NEGATIVE) Urine Urobilinogen (0-1) mg/dL Ur Leukocyte Esterase (NEGATIVE) Urine Microscopic WBC (0-5) /HPF Ur Epithelial Cells (FEW) /HPF Urine Bacteria (NEGATIVE) /HPF Urine Culture Reflexed (NO) Urine Glucose (NEGATIVE) mg/dL Valproic Acid (50-100) ug/mL Specimen Received - Progress Progress Note: 09/14/17 18:04 CXR: Portable chest demonstrates normal heart and lungs. Bony thorax intact with mild osteopenia, degenerative changes, old right clavicle fracture, and moderate scoliosis. CT Cervical: Axial images negative for acute fracture, suspicious bony lesions, or spinal canal stenosis. Mild C4- C6 degenerative endplate spurring. Mild/moderate multilevel bilateral degenerative facet hypertrophy. Sagittal and coronal reformatted images demonstrates straightening of the cervical lordosis, positional versus paraspinal spasm. Minimal 2 mm C4 anterolisthesis on C5. C6-C7 degenerative disc space narrowing. No acute compression fracture or jumped facet. Normal- appearing craniocervical junction. Visualized noncontrasted soft tissues demonstrates minimal bilateral carotid calcifications and dense bilateral thyroid calcifications. Lung apices clear. CT Facial: Inferior images are slightly degraded by motion artifact. No acute fracture, suspicious bony lesions, or radiopaque foreign body. Orbits including roof, jennings, and floor intact. Paranasal sinuses and nasal passages are clear. Minimal nasal septal deviation. Visualized noncontrasted soft tissues unremarkable The patient has been agitated. One on one nurse at bedside. She told them she needed to urinate and got on the commode. She has profound dementia with superimposed agitation. Appears to have had excessive sedation. She is improving. here and states she is DNR with no CPR, no intubation or heroics. She has a fair amount of bruises. 09/14/17 18:34 prefers she stay here overnight. She is still agitated. Bradycardic. Called Dr Abad (oc) who has been her phyician before halfway. Will place in ICU observation. Discussed with : Pollo Will see patient in: hospital (observation) Counseled pt/family regarding: lab results, diagnosis, need for follow-up, rad results - Departure Time of Disposition: 18:35 Departure Disposition: Observation (ICU Dr Abad) Clinical Impression: Bradycardia, Multiple contusions Alzheimer's dementia with behavioral disturbance Qualifiers: Alzheimer's disease onset: early-onset Qualified Code(s): G30.0 - Alzheimer's disease with early onset; F02.81 - Dementia in other diseases classified elsewhere with behavioral disturbance; F02.81 - Dementia in other diseases classified elsewhere with behavioral disturbance; F02.81 - Dementia in other diseases classified elsewhere with behavioral disturbance Condition: Fair Critical Care Time: No Referrals: MAEVE ABAD [Primary Care Provider] -
[2017-09-14 18:18] LABS: Appearance CLEAR (CLEAR); Bilirubin NEGATIVE (NEGATIVE); Blood NEGATIVE Ery/ul (0-5); Glucose 250 mg/dL (NEGATIVE); Ketones NEGATIVE (NEGATIVE); Leukocyte Esterase 1+ (NEGATIVE); Nitrite NEGATIVE (NEGATIVE); Ph 6.5 (5-6); Protein,Urine Dip NEGATIVE (Negative); Specific Gravity 1.015 (1.005-1.025); Urobilinogen 1 mg/dL (0-1)
[2017-09-14 18:19] LABS: Bacteria RARE /HPF (NEGATIVE); Epithelial Cells RARE /HPF (FEW); WBC 0-2 /HPF (0-5)
[2017-09-14 18:37] LABS: Lactic Acid 1.9 (0.4-2.0)
[2017-09-14] MEDS ORDERED: Adacel Vial IM ONE ×2 (18:37→19:00)
[2017-09-14] MEDS: Ativan 2 MG/1 ML VIAL IV PRN (22:24)
[2017-09-14] MEDS ORDERED: D50W 50 ml Abboject IV ONE (23:26)
[2017-09-14] MEDS ORDERED: GlucaGen 1 MG IM PRN (23:38)
[2017-09-14] MEDS ORDERED: Glutose 15 GM ORAL GEL PO PRN (23:38)
[2017-09-14] MEDS: D50W 50 ml Abboject IV PRN (23:40)
[2017-09-14] MEDS ORDERED: Oxy-IR 5 MG ONE (23:40)
[2017-09-14] MEDS ORDERED: Lyrica 50MG ONE (23:41)
[2017-09-14] MEDS ORDERED: Lexapro 10 MG ONE (23:41)
[2017-09-14] MEDS ORDERED: Keppra 250 MG ONE (23:41)
[2017-09-15 05:52] LABS: Hematocrit 42.9 % (35-47); Hemoglobin 13.9 gm/dl (12.0-16.0); Mean Cell Volume 91.5 fl (78-100); Mean Corpuscular Hemoglobin 29.6 pg (26-32); Mean Corpuscular Hgb Concent. 32.4 g/dl (32-36); Mean Platelet Volume 9.8 fl (6-9.5); Platelet Count 219 K/mm3 (150-450); Red Blood Count 4.69 M/mm3 (4.1-5.4); Red Cell Distribution Width 16.7 % (11.5-14.0); White Blood Count 10.6 K/mm3 (4.0-10.5)
[2017-09-15 06:08] LABS: BLOOD UREA NITROGEN 28 mg/dL (7-17); CHLORIDE 107 mmol/L (98-107); Calcium 9.2 mg/dL (8.4-10.2); Carbon Dioxide 32 mmol/L (22-30); Creatinine 1 0.82 mg/dL (0.52-1.04); Glucose 102 mg/dL (74-106); Potassium 3.9 mmol/L (3.5-5.1); SODIUM 148 mmol/L (137-145)
[2017-09-15 06:14] LABS: PREALBUMIN 19.85 mg/dL (17.6-36.0)
[2017-09-15] MEDS: D50W 50 ml Abboject IV PRN (06:23)
[2017-09-15] MEDS: Ativan 2 MG/1 ML VIAL IV PRN ×3 (07:49→17:01)
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
[2017-09-15] MEDS ORDERED: MEDICATION INTERVENTION MC SCH (09:45)
[2017-09-15] MEDS ORDERED: NON-FORMULARY ITEM (Omeprazole [Omeprazole] 40 MG) PO SCH (10:00)
[2017-09-15] MEDS ORDERED: DIVALPROEX SODIUM 125 MG PO SCH (10:00)
[2017-09-15] MEDS: Glucophage 500 MG PO SCH ×2 (10:30→17:06)
[2017-09-15] MEDS: SYNTHROID 125 MCG PO SCH (10:30)
[2017-09-15] MEDS: Protonix 40MG Tablet PO SCH (10:30)
[2017-09-15] MEDS: Haldol 5 MG IM PRN (15:44)
[2017-09-15] MEDS: Bactroban OINTMENT TOP SCH (22:07)
[2017-09-16] MEDS: Ativan 2 MG/1 ML VIAL IV PRN (00:06)
[2017-09-16] MEDS: Haldol 5 MG IM PRN (07:21)
[2017-09-16] MEDS: Protonix 40MG Tablet PO SCH (07:48)
[2017-09-16] MEDS: Glucophage 500 MG PO SCH ×2 (07:48→16:50)
[2017-09-16] MEDS: SYNTHROID 125 MCG PO SCH (07:48)
[2017-09-16 11:55] VITALS: O2SAT 96
[2017-09-16] MEDS: NovoLOG Insulin SQ PRN (12:20)
[2017-09-16] MEDS ORDERED: TYLENOL 325 MG PO PRN (13:35)
--- NOTE | 2017-09-16 14:08 | PCM.NOTE ---
Date and Time: 09/16/17 1402 Subjective Assessment: I called [facility] and spoke with nurse, Elaine, who had cared for her while she was there. She confirmed that she was taking depakote 500mg po tid for mood stabilization. She confirmed that she had a sore on her left toe they were treating and that this had been MRSA. I found in her chart where she was given linezolid 600 mg po tid x 7 days starting 09/06/17 for the infection. She has pulled her IV out. Discharge planning is trying to find placement for her. Her nurse from [facility] said she had zyprexa one other time and did not do well with it then either. Her feels like the ativan helps her more but she has been getting haldol as her IV has been out. - Review of Systems All Other Systems: Unable due to dementia Objective Exam General Appearance: other (agitated, in torito-chair, trying to stand up, does not follow commands, reaches for my stethoscope when I listen to her lungs.) Neurologic Exam: alert Skin Exam: other (multiple bruises including one on right side of forehead; ulcer on dorsal aspect of left big toe about 1 x 1 cm without active drainage.) Respiratory Exam: normal breath sounds, lungs clear, No crackles/rales, No rhonchi, No wheezing Cardiovascular Exam: regular rate/rhythm, normal heart sounds, No murmur, No friction rub, No gallop Extremity Exam: other (no c/c/e) OBJECTIVE DATA Vital Signs: Vital Signs - 24 hr Temp Pulse Resp BP Pulse Ox 09/16/17 11:55 98.6 F 84 16 132/90 96 09/16/17 07:32 98.4 F 84 16 138/96 99 09/16/17 00:05 110 H 140/104 Pain Assessment - Last Documented Pain Scale Used [facility] Intake and Output: Intake & Output 09/14/17 09/15/17 09/16/17 09/17/17 06:59 06:59 06:59 06:59 Intake Total 671 548 720 Balance 671 548 720 Weight 60.8 kg Lab Results: Accuchecks Date 09/16/17 Date 09/16/17 Date 09/16/17 Date 06/18/17 Date 09/15/17 Date 09/15/17 Time 11:30 Time 07:45 Time 00:00 Time 20:00 Time 15:22 Accucheck Value: 220 Accucheck Value: 121 Accucheck Value: 134 Accucheck Value: 134 Accucheck Value: 88 Accucheck Value: 78 Lab Results-Last 24 Hours 09/15/17 Range/Units 05:00 Hemoglobin A1c 6.94 H (4.5-6.0) % Multi-Disciplinary Progress Notes: Multi-Disciplinary Progress Notes 09/16/17 13:30 Case Management Note by Marline Simpson EVALUATED L GREAT TOE WITH DR. MENESES. REMOVED OLD BANDAGE. APPROX 1 CM OPEN AREA NOTED. APPLIED NEW BANDAGE. PT EVELYN WELL WITH ASSIST OF . BLE COOL TO TOUCH. Initialized on 09/16/17 13:30 - END OF NOTE 09/16/17 11:30 (created 09/16/17 12:56) Case Management Note by Marline Simpson FOLLOWUP PHONE CALL TO [facility], SPOKE WITH GALILEO, REPORTS THAT SHE WILL CALL "PIPED [employer]TONHO[employer] MACHINE OPERATOR" PERSON AND ASK AND CALL US BACK. PROVIDED WITH RETURN CALL INFORMATION. AWAIT RESPONSE. Initialized on 09/16/17 12:56 - END OF NOTE 09/15/17 17:15 (created 09/16/17 12:33) Case Management Note by Marline Simpson [phone] - NUMEROUS PHONE CALLS FOR INPT PSYCH VISIT (AND FAXED REFERRALS) TO VARIOUS FACILITIES THROUGHOUT [facility] FOR POSSIBLE INPATIENT BEHAVIORAL VISIT. CALL TO [facility], [facility], [facility], [facility] , [facility], [facility] , [facility], [facility], [facility], [facility], [facility], [facility]. ALL FACILITIES EITHER DO NOT PROVIDE ALZHEIMER'S/DEMENTIA TREATMENT OR PT IS NOT 63 WITH MEDICARE, AND FALLS OUT OF THE CRITERION FOR GEROPSYCHE. UNFORTUNATELY, UNABLE TO FIND FACILITY WILLING TO TAKE PT FOR INPT BEHAVIOR STAY. [facility] DID STAFF WITH PSYCHIATRIST, PT HAS BEEN THERE IN THE PAST, BUT IT WAS REPORTED THAT PSYCHIATRIST FEELS THAT THEY HAVE DONE ALL THEY CAN DO FOR THIS PATIENT, HER ALZHEIMERS IS ADVANCED. DISCUSSED ABOVE WITH PT 'S AND SON. REPORTS THAT IF [facility] WOULD TAKE PT BACK, THEY ARE WILLING FOR HER TO RETURN TO SENIOR CARE AND WORK ON GETTING HER MOVED CLOSER TO [facility]. SON REPORTS THAT THEY DO HAVE HER NAME ON A LIST AT [facility], BUT NO FEMALE BEDS AVAILABLE AT THIS TIME. CALL TO [facility], IT IS REPORTED AT THIS TIME, THAT THEY FEEL THAT THEY CAN NOT MEET PT' S NEEDS AT THIS TIME, AND REFUSE TO BRING HER BACK TO FACILITY. ALSO, CALL TO [facility], AND THEY STILL DO NOT HAVE A FEMALE BED AND DO NOT KNOW WHEN THEY WILL HAVE BED. PER FAMILY REQUEST, WILL START CALLING FACILITIES WITH ALZHEIMER /MEMORY UNITS FOR POSSIBLE ADMISSION. FAMILY REPORTS THAT THERE IS NO WAY THAT THEY CAN TAKE PT HOME AND CARE FOR HER. CALL TO [facility], FAXED REFERRAL TO [phone], AWAIT RESPONSE. DISCUSSED WITH FAMILY THAT IF ALL RESOURCES FAIL, WILL CALL [facility]ULT PR[facility]IVE SERVICES FOR ADVICE. Initialized on 09/16/17 12:33 - END OF NOTE 09/15/17 15:36 Case Management Note by Keren Araujo LEVEL I AND LOC QUEUED FOR REVIEW. Initialized on 09/15/17 15:36 - END OF NOTE Assessment/Plan (1) Alzheimer's dementia with behavioral disturbance Current Visit: Yes Status: Acute Qualifiers: Alzheimer's disease onset: early-onset Qualified Code(s): G30.0 - Alzheimer 's disease with early onset; F02.81 - Dementia in other diseases classified elsewhere with behavioral disturbance; F02.81 - Dementia in other diseases classified elsewhere with behavioral disturbance; F02.81 - Dementia in other diseases classified elsewhere with behavioral disturbance Assessment & Plan: Restart depakote 500 mg po tid as she is starting to take oral medications now. Will consider ativan IM as needed for agitation. Discharge planning is working on placement. Will add zyprexa to her allergies. Code(s): G30.8 - OTHER ALZHEIMER'S DISEASE; F02.81 - DEMENTIA IN OTH DISEASES CLASSD ELSWHR W BEHAVIORAL DISTURB (2) Essential hypertension Current Visit: Yes Status: Acute Assessment & Plan: Will restart propranolol but will give bid instead of tid and monitor heart rate. 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
[2017-09-16] MEDS: Depakene 250 MG/5 ML Syrup PO SCH ×2 (14:46→22:23)
[2017-09-16] MEDS ORDERED: Inderal 20 MG PO SCH ×2 (15:00→22:00)
[2017-09-16] MEDS ORDERED: Bactroban OINTMENT TOP SCH (22:00)
[2017-09-17] MEDS: Bactroban OINTMENT TOP SCH ×3 (03:28→22:30)
[2017-09-17] MEDS: Glucophage 500 MG PO SCH ×2 (08:21→17:18)
[2017-09-17] MEDS: SYNTHROID 125 MCG PO SCH (08:55)
[2017-09-17] MEDS: Protonix 40MG Tablet PO SCH (08:55)
[2017-09-17] MEDS: Depakene 250 MG/5 ML Syrup PO SCH ×3 (10:13→22:20)
[2017-09-17] MEDS ORDERED: MOTRIN 400 MG PO PRN (11:09)
[2017-09-17] MEDS ORDERED: TYLENOL 325 MG PO PRN (11:10)
--- NOTE | 2017-09-17 11:17 | PCM.NOTE ---
Date and Time: 09/17/17 1112 Subjective Assessment: Family at bedside today. They voice that they think the depakote makes her worse. They would like hospice to be consulted. They report she has a history of back pain and want her to be on a medication for this. They report she used to be on hydrocodone at home. She was not on opiates when she was at [facility] from my review of her chart. They report she told them this AM she was in pain and was given Tylenol. Family asking for Hospice consult. - Review of Systems All Other Systems: Unable due to dementia Objective Exam General Appearance: no apparent distress, other (picking at things, takes my hand and pulls me close to her.) Neurologic Exam: alert, other (She is speaking a few words today.) Skin Exam: normal color, warm, dry, other (pictures of feet in chart) Cardiovascular Exam: regular rate/rhythm, normal heart sounds, No murmur, No friction rub, No gallop Gastrointestinal/Abdomen Exam: soft OBJECTIVE DATA Vital Signs: Vital Signs - 24 hr Temp Pulse Resp BP Pulse Ox 09/17/17 08:52 95.5 F 18 98/60 09/17/17 00:05 61 18 147/59 09/16/17 20:00 20 09/16/17 11:55 98.6 F 84 16 132/90 96 Pain Assessment - Last Documented Pain Scale Used [facility] Intake and Output: Intake & Output 09/15/17 09/16/17 09/17/17 09/18/17 06:59 06:59 06:59 06:59 Intake Total 598 194 8217 480 Balance 808 242 2294 480 Weight 60.8 kg Lab Results: Accuchecks Date 09/17/17 Date 09/16/17 Time 09:19 Time 16:30 Accucheck Value: 83 Accucheck Value: 145 Multi-Disciplinary Progress Notes: Multi-Disciplinary Progress Notes 09/16/17 13:30 Case Management Note by Marline Simpson EVALUATED L GREAT TOE WITH DR. MENESES. REMOVED OLD BANDAGE. APPROX 1 CM OPEN AREA NOTED. APPLIED NEW BANDAGE. PT EVELYN WELL WITH ASSIST OF . BLE COOL TO TOUCH. Initialized on 09/16/17 13:30 - END OF NOTE 09/16/17 11:30 (created 09/16/17 12:56) Case Management Note by Marline Simpson FOLLOWUP PHONE CALL TO [facility], SPOKE WITH GALILEO, REPORTS THAT SHE WILL CALL "PARTS CLASSIFIER" PERSON AND ASK AND CALL US BACK. PROVIDED WITH RETURN CALL INFORMATION. AWAIT RESPONSE. Initialized on 09/16/17 12:56 - END OF NOTE Assessment/Plan (1) Alzheimer's dementia with behavioral disturbance Current Visit: Yes Status: Acute Qualifiers: Alzheimer's disease onset: early-onset Qualified Code(s): G30.0 - Alzheimer 's disease with early onset; F02.81 - Dementia in other diseases classified elsewhere with behavioral disturbance; F02.81 - Dementia in other diseases classified elsewhere with behavioral disturbance; F02.81 - Dementia in other diseases classified elsewhere with behavioral disturbance Assessment & Plan: Depakote ordered as this is what she stable on at [facility] before receiving zyprexa for transport, but family states they don't want her to have this. Trying to find placement for her. Will ask for [facility] consult as this is our psychiatry provider and ask for Hospice consult per family request. Code(s): G30.8 - OTHER ALZHEIMER'S DISEASE; F02.81 - DEMENTIA IN OTH DISEASES CLASSD ELSWHR W BEHAVIORAL DISTURB (2) Essential hypertension Current Visit: Yes Status: Acute Assessment & Plan: I stopped the propranolol order yesterday. Her blood pressure is currently controlled off of medication. Code(s): I10 - ESSENTIAL (PRIMARY) HYPERTENSION (3) DM w/o complication type II, uncontrolled Current Visit: Yes Status: Acute Qualifiers: Diabetes mellitus detention insulin use: without detention use Diabetes mellitus complication detail: with foot ulcer Assessment & Plan: Continue current treatment. Code(s): E11.65 - TYPE 2 DIABETES MELLITUS WITH HYPERGLYCEMIA (4) Diabetic foot ulcer associated with diabetes mellitus due to underlying condition Current Visit: Yes Status: Acute Code(s): E08.621 - DIABETES MELLITUS DUE TO UNDERLYING CONDITION W FOOT ULCER; L97.509 - NON-PRESSURE CHRONIC ULCER OTH PRT UNSP FOOT W UNSP SEVERITY (5) Pain Current Visit: Yes Status: Acute Assessment & Plan: Will try ibuprofen and tylenol as needed. Code(s): R52 - PAIN, UNSPECIFIED
[2017-09-17] MEDS: Ativan 2 MG/1 ML VIAL IM PRN (22:21)
[2017-09-17] MEDS: NovoLOG Insulin SQ PRN (22:21)
[2017-09-18] MEDS: Ativan 2 MG/1 ML VIAL IM PRN (03:59)
--- NOTE | 2017-09-18 08:07 | XRAY ---
Indication: Altered mental status. Comparison: None Portable chest demonstrates normal heart and lungs. Bony thorax intact with mild osteopenia, degenerative changes, old right clavicle fracture, and moderate scoliosis. Impression: Nonacute chest with chronic features.
[2017-09-18] MEDS: Protonix 40MG Tablet PO SCH (08:14)
[2017-09-18] MEDS: Glucophage 500 MG PO SCH ×2 (08:14→16:26)
[2017-09-18] MEDS: SYNTHROID 125 MCG PO SCH (08:14)
[2017-09-19 05:09] VITALS: BP 123/75; PULSE 72
[2017-09-19] MEDS: Glucophage 500 MG PO SCH (08:46)
[2017-09-19] MEDS: SYNTHROID 125 MCG PO SCH (08:47)
[2017-09-19] MEDS: Protonix 40MG Tablet PO SCH (08:47)
== END 2017-09-19 15:45 ==
LOC: ED 15:07 → ICU 19:52 → MED SURG 09-15 17:21
PROVIDERS: ADMIT Family Medicine; ATTEND Family Medicine
DX: G30.0 Alzheimer's disease with early onset (principal); F02.81 Dementia in other diseases classified elsewhere, unspecified severity, with behavioral disturbance; I10 Essential (primary) hypertension; E11.65 Type 2 diabetes mellitus with hyperglycemia; E08.621 Diabetes mellitus due to underlying condition with foot ulcer; L97.509 Non-pressure chronic ulcer of other part of unspecified foot with unspecified severity; Z79.899 Other long term (current) drug therapy
CPT/HCPCS: 36000; 36415; 36600; 70450; 70486; 71045; 72125; 80048; 80053; 80164; 81000; 82375; 82550; 82803; 82947; 82962; 83036; 83605; 83735; 84134; 84484; 85025; 85027; 85610; 85730; 93005; 93041; 93268; 94760; 96360; 96361; 97161; 99285; G0378; P9612; 90471; 90715; J1630; J2060; A9270-GY